=== PATIENT | male | born 2000 | race Two or more races ===

== ENCOUNTER 2023-10-14 16:00 | Emergency (ER) | payer MEDICAID, SELFPAY ==
[2023-10-14 16:08] VITALS: BP 130/85; PULSE 110; RESP 16; TEMP 37.2; O2SAT 96; BMI 26.4
--- NOTE | 2023-10-14 18:01 | ED.BACK1 ---
HPI - Back Pain/Injury General Chief Complaint: Back Pain/Injury Stated Complaint: Back Pain Time Seen by Provider: 10/14/23 18:00 Source: patient Mode of arrival: Wheelchair Related Data Previous Rx's Medication Instructions Recorded cyclobenzaprine 10 mg tablet 10 mg PO TID PRN muscle spasm #20 10/14/23 tabs ibuprofen 800 mg tablet 800 mg PO Q8H PRN pain #20 tabs 10/14/23 Allergies Allergy/AdvReac Type Severity Reaction Status Date / Time No Known Drug Allergies Allergy Verified 10/14/23 16:15 Exam Constitutional Vital Signs, click to edit/add: Last Vital Signs Temp 99.0 F 10/14/23 16:08 Pulse 110 H 10/14/23 16:08 Resp 16 10/14/23 16:08 BP 130/85 10/14/23 16:08 Pulse Ox 96 10/14/23 16:08 O2 Del Method Room Air 10/14/23 16:08 Course Vital Signs Vital signs: Vital Signs Temperature 99.0 F 10/14/23 16:08 Pulse Rate 110 H 10/14/23 16:08 Respiratory Rate 16 10/14/23 16:08 Blood Pressure 130/85 10/14/23 16:08 Pulse Oximetry 96 10/14/23 16:08 Oxygen Delivery Method Room Air 10/14/23 16:08 Temperature 99.0 F 10/14/23 16:08 Pulse Rate 110 H 10/14/23 16:08 Respiratory Rate 16 10/14/23 16:08 Blood Pressure 130/85 10/14/23 16:08 Pulse Oximetry 96 10/14/23 16:08 Oxygen Delivery Method Room Air 10/14/23 16:08 Discharge Plan Discharge Chief Complaint: Back Pain/Injury Clinical Impression: Low back pain Patient Disposition: Home, Self-Care Time of Disposition Decision: 20:27 Condition: Good Mode of Transportation: Private Vehicle Prescriptions / Home Meds: New cyclobenzaprine 10 mg tablet 10 mg PO TID PRN (Reason: muscle spasm) Qty: 20 0RF ibuprofen 800 mg tablet 800 mg PO Q8H PRN (Reason: pain) Qty: 20 0RF Instructions: Acute Low Back Pain (ED) Additional Instructions: Follow-up with PCP, list provided Stand Alone Forms: Portal Instructions Referrals: Physician,Non-Staff, MD [Primary Care Provider] - 1 week Discharge Date/Time: 10/14/23 20:49
--- NOTE | 2023-10-14 19:21 | XR_ITS ---
[facility] [id number] Patient Name: CHARITY QUINONES MRN: [id number] date: 2000 Sex: M Assigned Patient Location: ER Current Patient Location: ER Accession/Order Number: [id number] Exam Date: 10/14/2023 19:30 Report Date: 10/14/2023 20:19 At the request of: JUANA PORTILLO Procedure: XR lumbar spine 2-3V EXAM: XR lumbar spine 2-3V HISTORY: Pain COMPARISON: None. TECHNIQUE: 3 views FINDINGS: Maintenance of the normal lumbar lordosis.. Vertebral body heights and alignments exhibit no fracture or listhesis. Intervertebral disc space heights are unremarkable XR/XR lumbar spine 2-3V IMPRESSION: Normal lumbar spine x-rays Electronically authenticated by: BAY DANIEL Date: 10/14/2023 20:19
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
== END 2023-10-14 20:49 | disposition home or self-care (01) ==
PROVIDERS: Emergency Provider Emergency Medicine
DX: M54.50 Low back pain, unspecified (principal); Z89.612 Acquired absence of left leg above knee; Z89.611 Acquired absence of right leg above knee
CPT/HCPCS: 72100; 99284